=== PATIENT | female | born 1970 | race Caucasian/White ===

== ENCOUNTER 2022-01-11 12:55 | Inpatient (IN) | payer MEDICARE, OTHER ==
[~2022-01-11] VITALS: Ht 170.2 cm; Wt 69.9 kg
[2022-01-11] MEDS ORDERED: CETI-90 PO (13:19)
[2022-01-11] MEDS ORDERED: LISI20TA30 PO (13:19)
[2022-01-11] MEDS ORDERED: LEVE500T9 PO (13:19)
[2022-01-11] MEDS ORDERED: HYDR-3980 PO (13:19)
[2022-01-11] MEDS ORDERED: POTA10CA43 PO (13:19)
[2022-01-11] MEDS ORDERED: PROP10TA10 PO (13:19)
[2022-01-11] MEDS ORDERED: FOLI1TAB94 PO (13:19)
[2022-01-11] MEDS ORDERED: FURO40TA5 PO (13:19)
[2022-01-11] MEDS ORDERED: BENZ-13 PO (13:19)
[2022-01-11] MEDS ORDERED: MELA3TAB41 PO (13:30)
[2022-01-11] MEDS ORDERED: QUET50TA PO (13:30)
[2022-01-11] MEDS ORDERED: LACT10SO3 PO (13:30)
[2022-01-11] MEDS ORDERED: THIA100T13 PO (13:30)
[2022-01-11] MEDS ORDERED: AMOX-427 PO (13:30)
[2022-01-11] MEDS ORDERED: OLAN5TAB3 PO (13:30)
--- NOTE | 2022-01-11 14:11 | NUR ---
Patient ate lunch with good appetite. Pt. admitted to mental health unit room 138B , under care of Dr. Mcdonald for psych needs & [facility] hospitalist for internal medicine needs. Belongings List completed. MRSA swab collected. Security assistance for escort was requested.
[2022-01-11 14:30] VITALS: BP 103/68
[2022-01-11] MEDS ORDERED: MAGNESIUM HYDROXIDE 30 ML LIQUID UDC PO PRN (15:00)
[2022-01-11] MEDS ORDERED: BLOOD SUGAR DIAGNOSTIC 1 EACH STRIP VI ONE (15:00)
[2022-01-11] MEDS ORDERED: MAG HYDROX/AL HYDROX/SIMETH 30 ML LIQUID UDC PO PRN (15:00)
[2022-01-11] MEDS ORDERED: ACETAMINOPHEN 325 MG TABLET PO PRN (15:00)
--- NOTE | 2022-01-11 17:47 | NUR ---
Admitted a patient A/O X 3 to person, place. Pt. is cooperative with care, calm, isolative, depressed. Pt. is on 5150 hold for GD and DTS. Blood glucose is 83. Ambulates without assistance. Continent. Self care. Regular diet. Full Code. Emotional support given. Fall and safety precautions implemented.
--- NOTE | 2022-01-11 18:40 | NUR ---
Wall Taper Yesenia was called to be aware of patient seizure condition, and to be reminded to reconcile Kepra medication as soon as she can.
[2022-01-11 19:56] VITALS: BP 101/64
[2022-01-11] MEDS ORDERED: BENZONATATE 100 MG CAPSULE PO SCH (20:15)
[2022-01-11] MEDS ORDERED: CETIRIZINE HCL 10 MG TABLET PO SCH (20:15)
[2022-01-11] MEDS: LACTULOSE 20 G/30 ML LIQUID UDC PO SCH (20:44)
[2022-01-11] MEDS: FUROSEMIDE 40 MG TABLET PO SCH (20:44)
[2022-01-11] MEDS: levETIRAcetam 500 MG TABLET PO SCH (20:44)
[2022-01-11] MEDS ORDERED: AMOXICILLIN-CLAVUL 500-125MG TABLET ONE (21:30)
[2022-01-11] MEDS ORDERED: PROPRANOLOL HCL 10 MG TABLET ONE (21:31)
[2022-01-11] MEDS: LORAZEPAM 0.5 MG TABLET PO PRN (22:12)
[2022-01-11] MEDS: AMOXICILLIN-CLAVUL 500-125MG TABLET PO SCH (22:12)
[2022-01-11] MEDS: PROPRANOLOL HCL 10 MG TABLET PO SCH (22:12)
[2022-01-12] MEDS ORDERED: CETIRIZINE HCL 10 MG TABLET PO PRN (05:36)
[2022-01-12 07:24] LABS: HEMATOCRIT 32.3 % (31.2-41.9); MEAN CORPUSCULAR HEMOGLOBIN 37.3 uug (24.7-32.8); MEAN CORPUSCULAR VOLUME 109.5 fL (75.5-95.3); PLATELET COUNT (AUTO) 153 K/uL (179-408)
[2022-01-12 07:48] VITALS: BP 96/66
[2022-01-12 08:09] LABS: CREATININE 0.8 mg/dL (0.6-1.3); POTASSIUM 4.4 mmol/L (3.5-5.1)
[2022-01-12 08:29] LABS: BILIRUBIN,TOTAL 2.7 mg/dL (0.2-1.0); MAGNESIUM 1.8 mg/dL (1.8-2.4); TOTAL PROTEIN, SERUM 6.7 g/dL (6.4-8.2)
[2022-01-12] MEDS: THIAMINE HCL 100 MG TABLET PO SCH (08:55)
[2022-01-12] MEDS: levETIRAcetam 500 MG TABLET PO SCH ×2 (08:55→18:37)
[2022-01-12] MEDS: LACTULOSE 20 G/30 ML LIQUID UDC PO SCH ×2 (08:55→20:03)
[2022-01-12] MEDS: FOLIC ACID 1 MG TABLET PO SCH (08:55)
[2022-01-12] MEDS: FUROSEMIDE 40 MG TABLET PO SCH ×2 (08:55→18:37)
[2022-01-12] MEDS ORDERED: POTASSIUM CHLORIDE 10 MEQ TAB.PRT.SR PO SCH (09:00)
[2022-01-12] MEDS ORDERED: LISINOPRIL 20 MG TABLET PO SCH (09:00)
[2022-01-12] MEDS: PROPRANOLOL HCL 10 MG TABLET PO SCH ×2 (09:00→17:00)
[2022-01-12] MEDS: AMOXICILLIN-CLAVUL 500-125MG TABLET PO SCH ×2 (09:01→18:37)
[2022-01-12] MEDS: POTASSIUM CHLORIDE 20 MEQ TAB.PRT.SR PO SCH (09:07)
[2022-01-12] MEDS ORDERED: OLANZAPINE 5 MG TABLET PO PRN (11:00)
[2022-01-12] MEDS: OLANZAPINE 2.5 MG TABLET PO SCH (13:08)
[2022-01-12] MEDS: LORAZEPAM 0.5 MG TABLET PO PRN (15:29)
--- NOTE | 2022-01-12 15:56 | NUR ---
GPS: PT RECEIVED TODAY ALERT AND VERBALLY RESPONSIVE. ORIENTED X 2. PT REQUESTED FOR ATIVAN FOR ANXIETY AT AROUND 1530. PT TOLERATED WELL. COOPERATIVE WITH CARE AND COMPLIANT WITH MEDS. SOMEWHAT DEMANDING AND ATTENTION SEEKER. NO AGITATION AT THIS TIME.
[2022-01-12] MEDS ORDERED: MELATONIN 3 MG TABLET PO SCH ×2 (18:00)
[2022-01-12] MEDS ORDERED: OLANZAPINE 5 MG TABLET PO SCH (21:00)
[2022-01-12] MEDS: TEMAZEPAM 7.5 MG CAPSULE PO PRN (21:10)
[2022-01-12 22:06] VITALS: BP 99/42
[2022-01-13] MEDS: LORAZEPAM 0.5 MG TABLET PO PRN ×2 (04:20→23:23)
[2022-01-13 07:50] VITALS: BP 95/59
[2022-01-13] MEDS: OLANZAPINE 2.5 MG TABLET PO SCH (08:41)
[2022-01-13] MEDS: levETIRAcetam 500 MG TABLET PO SCH ×2 (08:41→18:07)
[2022-01-13] MEDS: FUROSEMIDE 40 MG TABLET PO SCH ×2 (08:41→18:08)
[2022-01-13] MEDS: THIAMINE HCL 100 MG TABLET PO SCH (08:41)
[2022-01-13] MEDS: LACTULOSE 20 G/30 ML LIQUID UDC PO SCH ×2 (08:41→22:08)
[2022-01-13] MEDS: FOLIC ACID 1 MG TABLET PO SCH (08:41)
[2022-01-13] MEDS: POTASSIUM CHLORIDE 20 MEQ TAB.PRT.SR PO SCH (08:41)
[2022-01-13] MEDS: AMOXICILLIN-CLAVUL 500-125MG TABLET PO SCH ×2 (08:42→18:07)
[2022-01-13] MEDS: PROPRANOLOL HCL 10 MG TABLET PO SCH ×2 (08:42→18:06)
--- NOTE | 2022-01-13 10:00 | NUR ---
GPS: PT RECEIVED ON BED TODAY, AWAKE AND ALERT, VERBALLY RESPONSIVE. DENIES ANY PAIN OR DISCOMFORT. PT ISOLATIVE AND WITHDRAWN. PT KIND OF NEEDY. ASKING FOR ALL KIND OF STUFF. NO AGITATION NOTED AT THIS TIME.
[2022-01-13 15:15] VITALS: BP 111/70
--- NOTE | 2022-01-13 15:51 | NUR ---
BASHIR Initial Discharge Note: Pt is admitted to [facility] from [facility] for harm to self and unable to take care of own food clothing or usp. Per pt's son, Ihsan ([phone]), pt will be returning to her current resident at [address] [place] [phone] with her boyfriend, Tony ([phone]) upon discharge. BASHIR spoke with Tony who stated that t is welcome back home upon discahrge. BASHIR will continue to work with pt, family and MD to ensure a safe and proper discharge plan for the pt.
--- NOTE | 2022-01-13 15:52 | NUR ---
BASHIR Admit Source: Pt is admitted to [facility] from [facility] for harm to self and unable to take care of own food clothing or fpc. Per pt's son, Ihsan ([phone]), pt will be returning to her current resident at [address] [place] [phone] with her boyfriend, Tony ([phone]) upon discharge. BASHIR spoke with Tony who stated that t is welcome back home upon discharge. BASHIR will continue to work with pt, family and MD to ensure a safe and proper discharge plan for the pt.
[2022-01-13 20:04] VITALS: BP 112/64
[2022-01-13] MEDS: OLANZAPINE 5 MG TABLET PO SCH (22:09)
--- NOTE | 2022-01-14 06:06 | NUR ---
Received to care last night slightly isolative, but pleasant, behaviour appropriate, but a little anxious. PRN Ativan and Restoril were given at bedtime, but she slept well all night. No distress noted.
[2022-01-14 07:25] LABS: BILIRUBIN,TOTAL 2.2 mg/dL (0.2-1.0); POTASSIUM 3.7 mmol/L (3.5-5.1); TOTAL PROTEIN, SERUM 6.9 g/dL (6.4-8.2)
[2022-01-14 07:30] VITALS: BP 97/51
[2022-01-14] MEDS: FUROSEMIDE 40 MG TABLET PO SCH ×2 (08:32→17:38)
[2022-01-14] MEDS: POTASSIUM CHLORIDE 20 MEQ TAB.PRT.SR PO SCH (08:32)
[2022-01-14] MEDS: FOLIC ACID 1 MG TABLET PO SCH (08:32)
[2022-01-14] MEDS: THIAMINE HCL 100 MG TABLET PO SCH (08:33)
[2022-01-14] MEDS: OLANZAPINE 2.5 MG TABLET PO SCH (08:33)
[2022-01-14] MEDS: levETIRAcetam 500 MG TABLET PO SCH ×2 (08:33→17:38)
[2022-01-14] MEDS: LACTULOSE 20 G/30 ML LIQUID UDC PO SCH ×2 (08:33→20:55)
[2022-01-14] MEDS: PROPRANOLOL HCL 10 MG TABLET PO SCH ×2 (08:38→17:38)
[2022-01-14] MEDS: AMOXICILLIN-CLAVUL 500-125MG TABLET PO SCH ×2 (08:39→17:38)
--- NOTE | 2022-01-14 10:04 | NUR ---
GPS: PT REMAIN ISOLATIVE AND WITHDRAWN IN HER ROOM, DOES NOT PARTICIPATE WITH GROUP THERAPY BUT ENCOURAGED BY STAFF. PT NEEDY AT TIMES. NO AGITATION AT THIS TIME. COOPERATIVE WITH CARE AND COMPLIANT WITH MEDS.
[2022-01-14] MEDS: LORAZEPAM 0.5 MG TABLET PO PRN ×2 (11:02→23:30)
--- NOTE | 2022-01-14 11:10 | NUR ---
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 A copy of report has been placed in patient chart.
[2022-01-14 16:00] VITALS: BP 112/74
[2022-01-14 20:00] VITALS: BP 118/65
[2022-01-14] MEDS: OLANZAPINE 5 MG TABLET PO SCH (20:56)
[2022-01-14] MEDS: TEMAZEPAM 7.5 MG CAPSULE PO PRN (22:37)
--- NOTE | 2022-01-15 05:57 | NUR ---
Received to care last night slightly isolative, but pleasant, behaviour appropriate, and a litle more social, than last night. PRN Ativan and Restoril were given at bedtime, and she slept well, all night. No distress noted.
[2022-01-15 07:30] VITALS: BP 92/60
[2022-01-15] MEDS: PROPRANOLOL HCL 10 MG TABLET PO SCH ×2 (09:00→17:00)
[2022-01-15] MEDS: FUROSEMIDE 40 MG TABLET PO SCH ×2 (09:06→17:45)
[2022-01-15] MEDS: levETIRAcetam 500 MG TABLET PO SCH ×2 (09:06→17:45)
[2022-01-15] MEDS: THIAMINE HCL 100 MG TABLET PO SCH (09:06)
[2022-01-15] MEDS: POTASSIUM CHLORIDE 20 MEQ TAB.PRT.SR PO SCH (09:06)
[2022-01-15] MEDS: FOLIC ACID 1 MG TABLET PO SCH (09:06)
[2022-01-15] MEDS: LACTULOSE 20 G/30 ML LIQUID UDC PO SCH (09:06)
[2022-01-15] MEDS: OLANZAPINE 2.5 MG TABLET PO SCH (09:06)
[2022-01-15] MEDS: AMOXICILLIN-CLAVUL 500-125MG TABLET PO SCH ×2 (09:07→17:44)
--- NOTE | 2022-01-15 09:52 | NUR ---
GPS: PT ISOLATIVE, STAYS IN HER ROOM. PT ASKED TO USED HER CELLPHONE TO TRANSFER MONEY FROM [employer]. WAS ABLE TO USE AND PLACE BACK THE CP TO [facility]E. NO AGITATION NOTED AT THIS TIME.
[2022-01-15] MEDS: LORAZEPAM 0.5 MG TABLET PO PRN (14:05)
[2022-01-15 16:13] VITALS: BP 107/67
[2022-01-15 17:00] VITALS: BP 107/67
--- NOTE | 2022-01-15 19:01 | NUR ---
GPS: PT [address] HEARING DONE TODAY AND PER B[employer]K [employer] AGENT LEATHA LANTIGUA, PT HOLD WILL BE DISCONTINUE. PER PT SHE WANTS TO LEAVE THE MHU TODAY. DR TOMPKINS AND TABATHA MADE AWARE OF THE DISCHARGE. MARTI WILKERSON NP ORDERED MEDS THRU [facility]LINE [facility], [facility] [place]. CALLED IN [facility] TO THE PHARMACY PER DR TOMPKINS ORDER. ALL BELONGINGS GIVEN, ACCOUNTED FOR AND SIGNED BY PT. GAVINO, THE BOYFRIEND PICK HER UP. PT EXCITED.
--- NOTE | 2022-01-16 09:28 | NUR ---
BASHIR Discharge Note: Pt was discharged to [facility] [address] [place], [place] [address] on 01/15/22 via family transportation by significant other, Tony ([phone]) at 7PM. BASHIR spoke with Tony who confirmed he will be able to provide transportation back to home for the pt. Pts hold was released by the court during pts hearing on 01/15/22. Pt is aware and agreeable with discharge plans. Pt is alert and oriented x4 and plans to return home under the care of her significant other at this time. Pt denies any suicidal or homicidal ideation. Pt will follow-up with a [facility] ([phone]) for a consult appointment prior to being assigned a psychiatrist. Pt presents with calm mood and congruent affect.
== END 2022-01-15 19:00 | disposition home or self-care (01) | DRG 885 ==
LOC: ER 12:59 → GPS 14:17
PROVIDERS: ADMIT Psychiatry & Neurology Psychosomatic Medicine; ATTEND Nurse Practitioner Acute Care
DX: F25.0 Schizoaffective disorder, bipolar type (principal); I11.0 Hypertensive heart disease with heart failure; E44.1 Mild protein-calorie malnutrition; K70.30 Alcoholic cirrhosis of liver without ascites; G40.909 Epilepsy, unspecified, not intractable, without status epilepticus; E78.5 Hyperlipidemia, unspecified; D69.6 Thrombocytopenia, unspecified; E88.09 Other disorders of plasma-protein metabolism, not elsewhere classified; F10.10 Alcohol abuse, uncomplicated; I25.2 Old myocardial infarction; K76.0 Fatty (change of) liver, not elsewhere classified; R74.01 Elevation of levels of liver transaminase levels; Z91.14 Patient's other noncompliance with medication regimen; F17.200 Nicotine dependence, unspecified, uncomplicated; Z68.24 Body mass index [BMI] 24.0-24.9, adult; I50.9 Heart failure, unspecified
CPT/HCPCS: 36415; 71045; 83735; 84100; 85025; 93005; 97161; A4663